=== PATIENT | male | born 1960 | race Caucasian/White ===

== ENCOUNTER 2017-10-24 02:54 | Emergency (ER) | payer OTHER ==
[2017-10-24] MEDS ORDERED: Sodium Chloride 0.9% 1,000 ML IV ONE (03:32)
--- NOTE | 2017-10-24 03:55 | C.PDOC ---
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 Pt denies fever, bloody stools, food association, chest pain, SOB Time Seen by Provider: 10/24/17 03:27 Chief Complaint (Nursing): Abdominal Pain History/Exam Limitations: no limitations Current Symptoms Are (Timing): Still Present Severity: Moderate Location Of Pain/Discomfort: Epigastric Radiation Of Pain To:: None Quality Of Discomfort: Aching Associated Symptoms: denies: Fever, Loss Of Appetite, Back Pain, Urinary Symptoms Exacerbating Factors: None Alleviating Factors: None Last Bowel Movement: Yesterday Recent travel outside of the [place]: No Past Medical History Vital Signs: Last Vital Signs Temp 97.6 F 10/24/17 06:30 Pulse 96 H 10/24/17 06:30 Resp 22 10/24/17 06:30 BP 145/76 10/24/17 06:30 Pulse Ox 97 10/24/17 06:30 - Medical History PMH: Diabetes, Hypercholesterolemia, Hypothyroidism Denies: Chronic Kidney Disease Family History: States: Unknown Family Hx - Social History Hx Tobacco Use: No Hx Alcohol Use: No Hx Substance Use: No - Immunization History Hx Tetanus Toxoid Vaccination: No Hx Influenza Vaccination: Yes Hx Pneumococcal Vaccination: Yes Review Of Systems Constitutional: Negative for: Fever, Chills Cardiovascular: Negative for: Chest Pain, Palpitations, Light Headedness Respiratory: Negative for: Shortness of Breath Gastrointestinal: Positive for: Nausea, Vomiting, Abdominal Pain. Negative for : Melena, Hematochezia Genitourinary: Negative for: Dysuria, Frequency, Hematuria Neurological: Negative for: Weakness, Numbness ED Course And Treatment - Laboratory Results Result Diagrams: 10/24/17 04:09 10/24/17 04:09 ECG: Interpreted By Me ECG Rhythm: Sinus Rhythm (84) ECG Interpretation: Normal, No Acute Changes O2 Sat by Pulse Oximetry: 98 Pulse Ox Interpretation: Normal - CT Scan/US CT Other Rad Studies (CT/US): Read By Radiologist, Radiology Report Reviewed CT/US Interpretation: FINDINGS: Lower thorax: There is minimal bibasilar atelectasis. A small hiatal hernia is present. ABDOMEN: Liver: Unremarkable. No mass. Gallbladder and bile ducts: The gallbladder is mildly distended. No calcified stones. No ductal. dilation. Pancreas: Unremarkable. No mass. No ductal dilation. Spleen: Unremarkable. No splenomegaly. Adrenals: Unremarkable. No mass. Kidneys and ureters: Unremarkable. No solid mass. No hydronephrosis. Stomach and bowel: Unremarkable. No obstruction. No mucosal thickening. Appendix: No findings to suggest acute appendicitis. Normal appendix. PELVIS: Bladder: Decompressed. Reproductive: The prostate gland is calcified with mild hypertrophy. ABDOMEN and PELVIS: Intraperitoneal space: Unremarkable. No free air. No significant fluid collection. Bones/joints: L5- S1 bilateral pars defects with minimal anterior subluxation of L5 on S1. approximately 5 mm. degenerative changes in the spine. Soft tissues: Unremarkable. Vasculature: Unremarkable. No abdominal aortic aneurysm. Lymph nodes: Unremarkable. No enlarged lymph nodes. IMPRESSION: Mildly distended gallbladder. Recommend correlation with laboratory values. If indicated, right upper. quadrant ultrasound could be obtained. 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 Mild prostate hypertrophy. Thank you for allowing us to participate in the care of your patient. Dictated and Authenticated by: Catrachita Garcia MD. 10/24/2017 6:25 AM Eastern Time ([place] & [place]) Progress Note: Labs ordered, pepcid, toradol IV and IVF hydration. Pt reports improved pain, all labs and abd /pelvis CT reviewed. Abd CT and labs reviewed, elev wbc, UA and chem wnl- Abd CT no acute findings. Pt remained stable and pain has resolved. Abd now soft , NT. Pt advised to take pain meds, antiemetics as needed and liquid/ BRAT diet. All instructons given and pt understand and agreed to plan. Return precautions were discussed with pt who expressed understanding Reevaluation Time: 06:52 Reassessment Condition: Improved Disposition Counseled Patient/Family Regarding: Diagnosis, Need For Followup, Rx Given - Disposition Referrals: [facility] [Outside] Disposition Time: 06:48 Condition: STABLE Additional Instructions: Take meds as directed Clear liquid diet / BRAT diet ( Gatorade, jack jennifer, sprite, clear soup, bananas, white toast and rice ) Return to ER if pain recurrs or worse Prescriptions: Famotidine [Pepcid] 20 mg PO DAILY #20 tab Ondansetron [Zofran Odt] 4 mg PO TID #10 odt Instructions: Viral Gastroenteritis, Adult (DC) Forms: [facility] (Greenlandic) Print Language: PASHTO - Clinical Impression Clinical Impression: Abdominal pain, Vomiting, Diarrhea
[2017-10-24 04:12] LABS: BASO % 0.3 % (0.0-2.0); EOS % 0.2 % (0.0-4.0); HEMOGLOBIN 16.2 g/dL (12.0-18.0); LYMPH # 1.5 K/uL (1.0-4.3); LYMPH % 9.9 % (20.0-40.0); MEAN CELL VOLUME 87.8 fL (80.0-94.0); MEAN CORPUSCULAR HEMOGLOBIN 29.1 pg (27.0-31.0); MEAN CORPUSCULAR HGB CONC 33.2 g/dL (33.0-37.0); MEAN PLATELET VOLUME 8.9 fL (7.2-11.7); MONO # 0.8 K/uL (0.0-0.8); MONO % 5.5 % (0.0-10.0); NEUT # 12.7 K/uL (1.8-7.0); NEUT % 84.1 % (50.0-75.0); NRBC % 0.1 % (0.0-2.0); PLATELET COUNT 231 K/uL (130-400); RBC 5.57 Mil/uL (4.40-5.90); RED CELL DISTRIBUTION WIDTH 14.8 % (11.5-14.5); WHITE BLOOD COUNT 15.1 K/uL (4.8-10.8)
[2017-10-24 04:25] LABS: ALB/GLOB RATIO 1.1 (1.0-2.1); ALBUMIN 4.8 g/dL (3.5-5.0); ALT/SGPT 54 U/L (21-72); AST/SGOT 35 U/L (17-59); BLOOD UREA NITROGEN 19 mg/dL (9-20); CALCIUM 9.8 mg/dl (8.6-10.4); GFR AFRICAN-AMERICAN > 60; GFR NON-AFRICAN AMERICAN > 60; LIPASE 169 U/L (23-300)
[2017-10-24] MEDS ORDERED: Iohexol 300 100 ML IJ ONE (05:07)
[2017-10-24 05:08] LABS: BANDS 9 % (0-2); EOSINOPHIL 1 % (0-4); LYMPHOCYTE 2 % (20-40); MONOCYTE 12 % (0-10); NEUTROPHIL 76 % (50-75); TOTAL CELLS COUNTED 100
[2017-10-24 05:09] LABS: PLATELET ESTIMATE NORMAL (NORMAL)
[2017-10-24 05:34] LABS: SQUAMOUS EPITHIAL < 1 /hpf (0-5); URINE BILIRUBIN NEGATIVE (NEGATIVE); URINE BLOOD NEGATIVE (NEGATIVE); URINE CLARITY Hazy (Clear); URINE COLOR Amber (YELLOW); URINE GLUCOSE (UA) NORMAL (Normal); URINE LEUKOCYTE ESTERASE NEG Leu/uL (Negative); URINE PROTEIN 2+ mg/dL (NEGATIVE)
--- NOTE | 2017-10-24 06:25 | CT ---
EXAM: CT Abdomen and Pelvis With Intravenous Contrast CLINICAL HISTORY: 57 years old, male; Pain; Abdominal pain; Localized; Upper; Additional info: Abd pain, diarrhea TECHNIQUE: Axial computed tomography images of the abdomen and pelvis with intravenous contrast. All CT scans at this facility use one or more dose reduction techniques, viz.: automated exposure control; ma/kV adjustment per patient size (including targeted exams where dose is matched to indication; i.e. head); or iterative reconstruction technique. Coronal and sagittal reformatted images were created and reviewed. CONTRAST: 100 mL of omni 300 administered intravenously. COMPARISON: No relevant prior studies available. FINDINGS: Lower thorax: There is minimal bibasilar atelectasis. A small hiatal hernia is present. ABDOMEN: Liver: Unremarkable. No mass. Gallbladder and bile ducts: The gallbladder is mildly distended. No calcified stones. No ductal dilation. Pancreas: Unremarkable. No mass. No ductal dilation. Spleen: Unremarkable. No splenomegaly. Adrenals: Unremarkable. No mass. Kidneys and ureters: Unremarkable. No solid mass. No hydronephrosis. Stomach and bowel: Unremarkable. No obstruction. No mucosal thickening. Appendix: No findings to suggest acute appendicitis. Normal appendix. PELVIS: Bladder: Decompressed. Reproductive: The prostate gland is calcified with mild hypertrophy. ABDOMEN and PELVIS: Intraperitoneal space: Unremarkable. No free air. No significant fluid collection. Bones/joints: L5-S1 bilateral pars defects with minimal anterior subluxation of L5 on S1 approximately 5 mm. degenerative changes in the spine. Soft tissues: Unremarkable. Vasculature: Unremarkable. No abdominal aortic aneurysm. Lymph nodes: Unremarkable. No enlarged lymph nodes. IMPRESSION: Mildly distended gallbladder. Recommend correlation with laboratory values. If indicated, right upper quadrant ultrasound could be obtained. 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 Mild prostate hypertrophy.
[2017-10-24 06:31] VITALS: BP 145/76; PULSE 96; RESP 22; TEMP 97.6
[2017-10-24 06:52] VITALS: O2SAT 98
--- NOTE | 2017-10-25 23:26 | CARD ---
APPROVED REPORT EKG Measurement Heart [id number] <Conclusion> Normal sinus rhythm Normal ECG
== END 2017-10-24 07:13 | disposition home or self-care (01) ==
LOC: C.ER 02:54
DX: R19.7 Diarrhea, unspecified (principal); R11.10 Vomiting, unspecified; R10.9 Unspecified abdominal pain; E11.9 Type 2 diabetes mellitus without complications; E03.9 Hypothyroidism, unspecified; E78.00 Pure hypercholesterolemia, unspecified
CPT/HCPCS: 74177; 80053; 81001; 82948; 83690; 85025; 93005; 96361; 96374; 96375; 99285; J1885; J2765; J7040; Q9967